=== PATIENT | female | born 1980 | race Hispanic/Latino ===

== ENCOUNTER 2017-06-03 11:52 | Emergency (ER) | payer BC ==
[~2017-06-03] VITALS: Ht 165.1 cm; Wt 62.6 kg
[2017-06-03] MEDS ORDERED: ONDANSETRON HCL INJ 2 MG/ML VIAL IV STA (12:21)
[2017-06-03] MEDS ORDERED: SODIUM CHLORIDE 0.9% 1000ML 1,000 ML IV STA (12:21)
[2017-06-03] MEDS ORDERED: KETOROLAC TROMETHAMINE 30 MG/ML VIAL IV STA (12:21)
[2017-06-03 12:30] LABS: BILIRUBIN,URINE NEGATIVE (NEGATIVE); KETONES,URINE 2+ (NEGATIVE); LEUKOCYTE ESTERASE ,URINE NEGATIVE (NEGATIVE); NITRITE,URINE NEGATIVE (NEGATIVE); URINE UROBILINOGEN 0.2 mg/dL (0.2 - 1)
[2017-06-03 12:31] LABS: PROTEIN,URINE DIPSTICK TRACE (NEGATIVE)
[2017-06-03 12:32] LABS: PREGNANCY TEST, URINE NEGATIVE (NEGATIVE)
[2017-06-03 12:45] LABS: BACTERIA,URINE FEW /HPF; CLARITY,URINE HAZY (CLEAR); COLOR,URINE YELLOW (YELLOW); EPITHELIAL CELLS,URINE FEW /LPF
[2017-06-03] MEDS ORDERED: KETOROLAC TROMETHAMINE 30 MG/ML VIAL ONE (12:51)
[2017-06-03] MEDS ORDERED: ONDANSETRON HCL INJ 2 MG/ML VIAL ONE (12:51)
[2017-06-03 13:12] LABS: BASOPHILS % 0.4 % (0.0-1.0); EOSINOPHILS # (AUTO) 0.1 (0.0-0.4); EOSINOPHILS % 0.9 % (0.0-6.0); HEMATOCRIT 38.2 % (34.2-44.1); HEMOGLOBIN 12.4 g/dL (12.0-16.0); LYMPHOCYTES # (AUTO) 1.6 (1.0-3.2); LYMPHOCYTES % 14.3 % (18.0-39.1); MEAN CORPUSCULAR HEMOGLOBIN 27.7 pg (28-32); MEAN CORPUSCULAR HGB CONC 32.5 g/dL (31-35); MEAN CORPUSCULAR VOLUME 85.3 fL (81-99); MONOCYTES # (AUTO) 0.5 (0.2-0.8); MONOCYTES % 4.7 % (4.4-11.3); NEUTROPHILS # (AUTO) 8.9 (2.1-6.9); NEUTROPHILS % 79.3 % (38.7-80.0); PLATELET COUNT 310 x10e3/uL (140-360); RED BLOOD COUNT 4.48 x10e6/uL (3.6-5.1); RED CELL DISTRIBUTION WIDTH 14.9 % (11.7-14.4)
[2017-06-03 13:34] LABS: ALANINE AMINOTRANSFERASE 22 IU/L (0-55); ALBUMIN 4.4 g/dL (3.5-5.0); ALBUMIN/GLOBULIN RATIO 1.2 (0.8-2.0); ALKALINE PHOSPHATASE 55 IU/L (40-150); BLOOD UREA NITROGEN 13 mg/dL (7-26); BUN/CREATININE RATIO 17 (6-25); CALCIUM 9.3 mg/dL (8.4-10.2); CARBON DIOXIDE 23 mmol/L (22-29); CHLORIDE 118 mmol/L (98-107); CREATININE, SERUM 0.77 mg/dL (0.57-1.11); EST GLOMERULAR FILTRATION RATE > 60 ML/MIN (60-); GLUCOSE 109 mg/dL (74-118); POTASSIUM 3.4 mmol/L (3.5-5.1)
[2017-06-03 15:23] LABS: ANION GAP 0.4 mmol/L (8-16); SODIUM 138 mmol/L (136-145)
--- NOTE | 2017-06-03 18:11 | Diagnostic Imaging Report ---
EXAM: CT Abdomen and Pelvis WITHOUT contrast INDICATION: COMPARISON: None. TECHNIQUE: Abdomen and Pelvis was scanned utilizing a multidetector helical scanner without the use of IV contrast. Coronal and sagittal reformations were obtained. IV CONTRAST: None COMPLICATIONS: None RADIATION DOSE: Total DLP: 242 mGy*cm Estimated effective dose: (DLP x 0.015 x size factor) mSv CTDIvol has been reviewed. It is below the limits set by the Radiation Protocol Committee (RPC). FINDINGS: Abdomen: Lung Bases: No acute findings. Solid Organs: Nonenhanced images of liver, adrenals, kidneys, spleen, and pancreas are unremarkable. No hydronephrosis, renal, or ureteral calculi. Upper GI Tract: Small hiatal hernia. No small bowel obstructive changes. Increased density material within the small bowel. Vascularity: No aortic aneurysm. Lymph Nodes: No suspicious adenopathy within limitations of nonenhanced exam. Other: None. Pelvis: Bladder: Moderately distended. Other: Uterus/adnexa suboptimally evaluated on nonenhanced CT. Colon: No acute colonic findings. Bones: No acute findings. IMPRESSION: 1. Moderate distention urinary bladder. 2. No renal or ureteral calculi. 3. Increased density material within the small bowel statistically ingested material. 4. Case discussed with Dr. Burnham at 2:15 PM. Signed by: Dr. Brett Alexandra MD on 06/03/2017 6:07 PM
== END 2017-06-03 15:25 | disposition home or self-care (01) ==
LOC: ER 11:52
DX: R10.9 Unspecified abdominal pain (principal); R33.9 Retention of urine, unspecified
CPT/HCPCS: 36415; 74176; 80053; 81001; 81025; 85025; 87086; 99284; J1885; J2405; J7030

== ENCOUNTER 2017-08-12 01:19 | Emergency (ER) | payer BC ==
[~2017-08-12] VITALS: Ht 165.1 cm; Wt 64.9 kg
--- OUTSIDE RECORDS SUMMARY | 2017-08-12 01:20 | XMS REPORT ---
Author Author [facility] Address Unknown Phone Unavailable Care Team Providers Care Philatelic Consultant Name Role Phone STEFF NATH Unavailable Unavailable Problems This patient has no known problems. Allergies, Adverse Reactions, Alerts This patient has no known allergies or adverse reactions. Medications This patient has no known medications. Results Test Description Test Time Test Comments Text Results Atomic Results Result Comments CT ABDOMEN/PELVIS WO [place] [address] Patient Name: WILLI CRAFT MR #: [id number] : 1980 Age/Sex: 37/F Req #: [id number] Adm Physician: Ordered by: RACHEL MCMAHAN COPER HAND Report #: [id number] Location: ER Room/Bed: Procedure: [id number] CT/CT ABDOMEN/PELVIS WO Exam Date: 06/03/17 Exam Time: 1345 REPORT STATUS: Signed EXAM: CT Abdomen and Pelvis WITHOUT contrast INDICATION: COMPARISON: None. TECHNIQUE: Abdomen and Pelvis was scanned utilizing a multidetector helical scanner without the use of IV contrast. Coronal and sagittal reformations were obtained. IV CONTRAST: None COMPLICATIONS: None RADIATION DOSE: Total DLP: 242 mGy*cm Estimated effective dose: (DLP x 0.015 x size factor) mSv CTDIvol has been reviewed. It is below the limits set by the Radiation Protocol Committee (RPC). FINDINGS: Abdomen: Lung Bases: No acute findings. Solid Organs: Nonenhanced images of liver, adrenals, kidneys, spleen, and pancreas are unremarkable. No hydronephrosis, renal, or ureteral calculi. Upper GI Tract: Small hiatal hernia. No small bowel obstructive changes. Increased density material within the small bowel. Vascularity: No aortic aneurysm. Lymph Nodes: No suspicious adenopathy within limitations of nonenhanced exam. Other: None. Pelvis: Bladder: Moderately distended. Other: Uterus/adnexa suboptimally evaluated on nonenhanced CT. Colon: No acute colonic findings. Bones: No acute findings. IMPRESSION: 1. Moderate distention urinary bladder. 2. No renal or ureteral calculi. 3. Increased density material within the small bowel statistically ingested material. 4. Case discussed with Dr. Nath at 2:15 PM. Signed by: Dr. Brett Alexandra MD on 06/03/2017 6:07 PM Dictated By: BRETT ALEXANDRA MD 06 Transcribed By: BRANDON on 06/03/171806 COPY TO: RACHEL MCMAHAN NP
[2017-08-12 01:51] LABS: BILIRUBIN,URINE NEGATIVE (NEGATIVE); CLARITY,URINE HAZY (CLEAR); COLOR,URINE YELLOW (YELLOW); KETONES,URINE 1+ (NEGATIVE); LEUKOCYTE ESTERASE ,URINE NEGATIVE (NEGATIVE); NITRITE,URINE NEGATIVE (NEGATIVE); PROTEIN,URINE DIPSTICK NEGATIVE (NEGATIVE); URINE UROBILINOGEN 0.2 mg/dL (0.2 - 1)
[2017-08-12 01:53] LABS: PREGNANCY TEST, URINE NEGATIVE (NEGATIVE)
[2017-08-12] MEDS ORDERED: SODIUM CHLORIDE 0.9% 1000ML 1,000 ML IV STA (01:56)
[2017-08-12] MEDS ORDERED: PANTOPRAZOLE 40 MG 10ML VIAL IV STA (01:56)
[2017-08-12] MEDS ORDERED: ONDANSETRON HCL INJ 2 MG/ML VIAL IV STA (01:56)
[2017-08-12] MEDS ORDERED: MORPHINE SULFATE 2 MG/ML SYR IV STA (01:56)
[2017-08-12] MEDS ORDERED: KETOROLAC TROMETHAMINE 30 MG/ML VIAL IV STA (01:56)
[2017-08-12 02:06] LABS: BACTERIA,URINE MODERATE /HPF; EPITHELIAL CELLS,URINE FEW /LPF; MUCUS,URINE MANY (RARE); RBC,URINE 21-50 /HPF (0-5)
[2017-08-12] MEDS ORDERED: CEFTRIAXONE SOD 1 GM VIAL IV STA (02:18)
[2017-08-12 02:19] LABS: BASOPHILS % 0.4 % (0.0-1.0); EOSINOPHILS # (AUTO) 0.2 (0.0-0.4); EOSINOPHILS % 1.6 % (0.0-6.0); HEMATOCRIT 37.6 % (34.2-44.1); HEMOGLOBIN 12.3 g/dL (12.0-16.0); LYMPHOCYTES # (AUTO) 3.9 (1.0-3.2); MEAN CORPUSCULAR HEMOGLOBIN 27.6 pg (28-32); MEAN CORPUSCULAR HGB CONC 32.7 g/dL (31-35); MEAN CORPUSCULAR VOLUME 84.5 fL (81-99); MONOCYTES # (AUTO) 0.6 (0.2-0.8); MONOCYTES % 5.9 % (4.4-11.3); NEUTROPHILS # (AUTO) 5.1 (2.1-6.9); NEUTROPHILS % 51.7 % (38.7-80.0); PLATELET COUNT 342 x10e3/uL (140-360); RED BLOOD COUNT 4.45 x10e6/uL (3.6-5.1)
--- NOTE | 2017-08-12 02:38 | Diagnostic Imaging Report ---
EXAM: CT ABDOMEN AND PELVIS without IV CONTRAST INDICATION: Right flank pain COMPARISON: CT of the abdomen and pelvis June 03, 2017 TECHNIQUE: The abdomen and pelvis were scanned using a multidetector helical scanner. Coronal and sagittal reformations were obtained. Renal stone protocol performed. IV Contrast: None Oral Contrast: None CTDIvol has been reviewed. It is below the limits set by the Radiation Protocol Committee (RPC). FINDINGS: LOWER THORAX: No consolidations LIVER: No masses BILIARY: Normal gallbladder. No ductal dilation. SPLEEN: No masses PANCREAS: No masses ADRENALS: No nodules RIGHT KIDNEY: No nephroureterolithiasis or hydronephrosis. LEFT KIDNEY: No nephroureterolithiasis or hydronephrosis. GI TRACT: No wall thickening or obstruction. Normal appendix. VESSELS: Normal PERITONEUM/RETROPERITONEUM: Trace free pelvic fluid consistent with physiologic fluid. LYMPH NODES: No lymphadenopathy REPRODUCTIVE ORGANS: Normal BLADDER: Moderately distended SOFT TISSUES: Normal BONES: No suspicious bone lesions. IMPRESSION: No nephroureterolithiasis. Moderately distended bladder. Signed by: Dr. Nilda Santos M.D. on 08/12/2017 2:34 AM
[2017-08-12 02:40] LABS: ALANINE AMINOTRANSFERASE 13 IU/L (0-55); ALBUMIN 4.4 g/dL (3.5-5.0); ALBUMIN/GLOBULIN RATIO 1.3 (0.8-2.0); ALKALINE PHOSPHATASE 53 IU/L (40-150); ANION GAP 17.2 mmol/L (8-16); BLOOD UREA NITROGEN 9 mg/dL (7-26); CALCIUM 9.5 mg/dL (8.4-10.2); CARBON DIOXIDE 21 mmol/L (22-29); CHLORIDE 100 mmol/L (98-107); GLUCOSE 107 mg/dL (74-118); MAGNESIUM 1.9 MG/DL (1.3-2.1); POTASSIUM 3.2 mmol/L (3.5-5.1); SODIUM 135 mmol/L (136-145)
[2017-08-12 02:57] LABS: BUN/CREATININE RATIO 12 (6-25); CREATININE, SERUM 0.77 mg/dL (0.57-1.11); EST GLOMERULAR FILTRATION RATE > 60 ML/MIN (60-)
== END 2017-08-12 03:15 | disposition home or self-care (01) ==
LOC: ER 01:19
DX: R10.31 Right lower quadrant pain (principal); N10 Acute pyelonephritis; N39.0 Urinary tract infection, site not specified
CPT/HCPCS: 36415; 74176; 80053; 81001; 81025; 83735; 85025; 87086; 99284; J0696; J1885; J2270; J2405; J7030

== ENCOUNTER 2017-09-11 19:20 | Emergency (ER) | payer BC ==
[~2017-09-11] VITALS: Ht 165.1 cm; Wt 64.9 kg
--- OUTSIDE RECORDS SUMMARY | 2017-09-11 19:23 | XMS REPORT | Continuity of Care Document ---
Author Author [facility] Organization [facility] Address [address] [place] [address] Phone Unavailable Care Team Providers Care Fine Grade Operator Name Role Phone NO, PCP PCP Unavailable Insurance Providers Guarantor Willi Grimaldo Address [address] [place] [address] Email [email or web address] [facility] Policy Number [id number] Subscriber's Name Willi Grimaldo Relationship 18 Self / Same As Patient Group Number [id number] Group [place] [facility] [place] [employer] [place] Effective Date 17 Advance Directives Directive Response Recorded Date/Time Does the patient have an advance directive? No 06/03/17 1:30pm If yes, is advance directive on file with [facility]? No 06/03/17 1:30pm If not on file with [facility] will patient provide a copy? No 06/03/17 1:30pm Do you have a Directive to Physician? No 08/12/17 1:17am Do you have a Medical Power of Database Software Technician? No 08/12/17 1:17am Do you have an out of hospital Do Not Resuscitate Order? No 08/12/17 1:17am Do you have any special needs we should be aware of? No 08/12/17 1:17am Do you have a support person here with you today? Yes 08/12/17 1:17am Did patient receive Notice of Privacy Practices? Yes 08/12/17 1:17am Did patient receive patient rights and responsibilities? Yes 08/12/17 1:17am Problems No problem information available. Medications No medication information available. Social History Smoking Status Start Date Stop Date Never Smoker Hospital Discharge Instructions No hospital discharge instruction information available. Plan of Care Discharge Date 08/12/17 3:15am Disposition HOME, SELF-CARE Condition at Discharge Stable Instructions/Education Provided Pyelonephritis Urinary Tract Infection - Women Forms Provided Work/School Excuse Prescriptions See Medication Section Additional Instructions/Education FOLLOW UP WITH YOUR DOCTOR AND UROLOGIST TOMORROW DRINK PLENTY OF FLUIDS TAKE MEDS DIRECTED TAKE IBUPROFEN ACCORDING TO LABEL INSTRUCTIONS Functional Status No functional status information available. Allergies, Adverse Reactions, Alerts No known allergies. Immunizations No immunization information available. Vital Signs Acute Vital Signs Vital Response Date/Time Height 5 ft 5 in 08/12/2017 1:28am Weight 143 lb 08/12/2017 1:28am Body Mass Index 23.8 kg/m^2 08/12/2017 1:28am Results Laboratory Results Test Name Result Units Flags Reference Collection Date/Time Result Date/ Time Comments White Blood Count 9.83 x10e3/uL 4.8-10.8 08/12/2017 2:15am 08/12/2017 2 :25am Red Blood Count 4.45 x10e6/uL 3.6-5.1 08/12/2017 2:15am 08/12/2017 2: 25am Hemoglobin 12.3 g/dL 12.0-16.0 08/12/2017 2:15am 08/12/2017 2:25am Hematocrit 37.6 % 34.2-44.1 08/12/2017 2:15am 08/12/2017 2:25am Mean Corpuscular Volume 84.5 fL 81-99 08/12/2017 2:15am 08/12/2017 2: 25am Mean Corpuscular Hemoglobin 27.6 pg L 28-32 08/12/2017 2:15am 2017 2:25am Mean Corpuscular Hemoglobin Concent 32.7 g/dL 31-35 08/12/2017 2:15am 08/12/2017 2:25am Red Cell Distribution Width 14.0 % 11.7-14.4 08/12/2017 2:15am 2017 2:25am Platelet Count 342 x10e3/uL 140-360 08/12/2017 2:15am 08/12/2017 2: 25am Neutrophils (%) (Auto) 51.7 % 38.7-80.0 08/12/2017 2:15am 08/12/2017 2: 25am Lymphocytes (%) (Auto) 40.0 % H 18.0-39.1 08/12/2017 2:1508/12/2017 2 :25am Monocytes (%) (Auto) 5.9 % 4.4-11.3 08/12/2017 2:1508/12/2017 2: 25am Eosinophils (%) (Auto) 1.6 % 0.0-6.0 08/12/2017 2:15am 08/12/2017 2: 25am Basophils (%) (Auto) 0.4 % 0.0-1.0 08/12/2017 2:1508/12/2017 2:25am IM GRANULOCYTES % 0.4 % 0.0-1.0 08/12/2017 2:1508/12/2017 2:25am Neutrophils # (Auto) 5.1 2.1-6.9 08/12/2017 2:15am 08/12/2017 2:25am Lymphocytes # (Auto) 3.9 H 1.0-3.2 08/12/2017 2:15am 08/12/2017 2: 25am Monocytes # (Auto) 0.6 0.2-0.8 08/12/2017 2:15am 08/12/2017 2:25am Eosinophils # (Auto) 0.2 0.0-0.4 08/12/2017 2:15am 08/12/2017 2:25am Basophils # (Auto) 0.0 0.0-0.1 08/12/2017 2:1508/12/2017 2:25am Absolute Immature Granulocyte (auto 0.04 x10e3/uL 0-0.1 08/12/2017 2: 1508/12/2017 2:25am Urine Color YELLOW YELLOW 08/12/2017 1:48am 08/12/2017 1:52am Urine Clarity HAZY CLEAR 08/12/2017 1:48am 08/12/2017 1:52am Urine Specific [place] 1.015 1.010-1.025 08/12/2017 1:48am 2017 1:52am Urine pH 7 5 - 7 08/12/2017 1:48am 08/12/2017 1:52am Urine Leukocyte Esterase NEGATIVE NEGATIVE 08/12/2017 1:48am 2017 1:52am Urine Nitrite NEGATIVE NEGATIVE 08/12/2017 1:48am 08/12/2017 1:52am Urine Protein NEGATIVE NEGATIVE 08/12/2017 1:48am 08/12/2017 1:52am Urine Glucose (UA) NEGATIVE NEGATIVE 08/12/2017 1:48am 08/12/2017 1: 52am Urine Ketones 1+ H NEGATIVE 08/12/2017 1:48am 08/12/2017 1:52am Urine Urobilinogen 0.2 mg/dL 0.2 - 1 08/12/2017 1:48am 08/12/2017 1: 52am Urine Bilirubin NEGATIVE NEGATIVE 08/12/2017 1:48am 08/12/2017 1: 52am Urine Blood 3+ H NEGATIVE 08/12/2017 1:48am 08/12/2017 1:52am Urine WBC 6-10 /HPF H 0-5 08/12/2017 1:48am 08/12/2017 2:07am Urine RBC 21-50 /HPF H 0-5 08/12/2017 1:48am 08/12/2017 2:07am Urine Bacteria MODERATE /HPF H NONE 08/12/2017 1:48am 08/12/2017 2:07am Urine Epithelial Cells FEW /LPF NONE 08/12/2017 1:48am 08/12/2017 2: 07am Urine Mucus MANY H RARE 08/12/2017 1:48am 08/12/2017 2:07am Urine Test NEGATIVE NEGATIVE 08/12/2017 1:48am 08/12/2017 1 :53am Sodium Level 135 mmol/L L 136-145 08/12/2017 2:15am 08/12/2017 2:43am Potassium Level 3.2 mmol/L L 3.5-5.1 08/12/2017 2:15am 08/12/2017 2: 43am Chloride Level 100 mmol/L 98-107 08/12/2017 2:15am 08/12/2017 2:43am Carbon Dioxide Level 21 mmol/L L 22-29 08/12/2017 2:15am 08/12/2017 2: 43am Anion Gap 17.2 mmol/L H 8-16 08/12/2017 2:1508/12/2017 2:43am Blood Urea Nitrogen 9 mg/dL 7-26 08/12/2017 2:1508/12/2017 2:43am Creatinine 0.77 mg/dL 0.57-1.11 08/12/2017 2:1508/12/2017 3:02am BUN/Creatinine Ratio 12 6-25 08/12/2017 2:1508/12/2017 3:02am Estimat Glomerular Filtration Rate > 60 ML/MIN 60- 08/12/2017 2:15 3:02am Ranges were taken from the National Kidney Disease Education Program and the National Kidney Foundation literature. Reference ranges: 60 or greater: Normal 16-59 (for 3 consecutive months): Chronic kidney disease 15 or less: Kidney failure Glucose Level 107 mg/dL 74-118 08/12/2017 2:1508/12/2017 2:43am Calcium Level 9.5 mg/dL 8.4-10.2 08/12/2017 2:1508/12/2017 2:43am Magnesium Level 1.9 MG/DL 1.3-2.1 08/12/2017 2:1508/12/2017 2:43am Total Bilirubin 0.4 mg/dL 0.2-1.2 08/12/2017 2:1508/12/2017 2:43am Aspartate Amino Transf (AST/SGOT) 15 IU/L 5-34 08/12/2017 2:152017 2:43am Alanine Aminotransferase (ALT/SGPT) 13 IU/L 0-55 08/12/2017 2:1509/2017 2:43am Total Protein 7.8 g/dL 6.5-8.1 08/12/2017 2:1508/12/2017 2:43am Albumin 4.4 g/dL 3.5-5.0 08/12/2017 2:1508/12/2017 2:43am Globulin 3.4 g/dL 2.3-3.5 08/12/2017 2:1508/12/2017 2:43am Albumin/Globulin Ratio 1.3 0.8-2.0 08/12/2017 2:1508/12/2017 2: 43am Alkaline Phosphatase 53 IU/L 40-150 08/12/2017 2:15am 08/12/2017 2: 43am Procedures Procedure Status Date Provider(s) CT of abdomen and pelvis without contrast Active 06/03/[address] of abdomen and pelvis without contrast Active 08/12/17 CHARU SANDOVAL MD Encounters Encounter Location Arrival/Admit Date Discharge/Depart Date Attending Provider Departed Emergency Room [facility] 08/12/17 1:19am 3:15am CHARU SANDOVAL MD Departed Emergency Room [facility] 06/03/17 11:52am 06/03 3:25pm STEFF NATH MD
[2017-09-11 21:10] LABS: BASOPHILS % 0.3 % (0.0-1.0); EOSINOPHILS # (AUTO) 0.1 (0.0-0.4); EOSINOPHILS % 0.5 % (0.0-6.0); HEMATOCRIT 39.6 % (34.2-44.1); HEMOGLOBIN 12.9 g/dL (12.0-16.0); LYMPHOCYTES # (AUTO) 1.8 (1.0-3.2); LYMPHOCYTES % 14.9 % (18.0-39.1); MEAN CORPUSCULAR HEMOGLOBIN 27.9 pg (28-32); MEAN CORPUSCULAR HGB CONC 32.6 g/dL (31-35); MEAN CORPUSCULAR VOLUME 85.7 fL (81-99); MONOCYTES # (AUTO) 0.4 (0.2-0.8); MONOCYTES % 3.5 % (4.4-11.3); NEUTROPHILS # (AUTO) 9.5 (2.1-6.9); NEUTROPHILS % 80.4 % (38.7-80.0); PLATELET COUNT 319 x10e3/uL (140-360); RED BLOOD COUNT 4.62 x10e6/uL (3.6-5.1); RED CELL DISTRIBUTION WIDTH 14.2 % (11.7-14.4)
[2017-09-11] MEDS ORDERED: KETOROLAC TROMETHAMINE 30 MG/ML VIAL IV STA (21:10)
[2017-09-11] MEDS ORDERED: ONDANSETRON HCL INJ 2 MG/ML VIAL IV STA (21:16)
[2017-09-11 21:20] LABS: CLARITY,URINE SL CLOUDY (CLEAR); COLOR,URINE YELLOW (YELLOW); LEUKOCYTE ESTERASE ,URINE NEGATIVE (NEGATIVE); NITRITE,URINE NEGATIVE (NEGATIVE); PROTEIN,URINE DIPSTICK TRACE (NEGATIVE)
[2017-09-11 21:21] LABS: BILIRUBIN,URINE NEGATIVE (NEGATIVE); KETONES,URINE 2+ (NEGATIVE); URINE UROBILINOGEN 0.2 mg/dL (0.2 - 1)
[2017-09-11] MEDS ORDERED: ONDANSETRON HCL INJ 2 MG/ML VIAL ONE (21:21)
[2017-09-11 21:24] LABS: ALANINE AMINOTRANSFERASE 18 IU/L (0-55); ALBUMIN 4.9 g/dL (3.5-5.0); ALBUMIN/GLOBULIN RATIO 1.3 (0.8-2.0); ALKALINE PHOSPHATASE 60 IU/L (40-150); AMYLASE 57 U/L (25-125); BLOOD UREA NITROGEN 10 mg/dL (7-26); BUN/CREATININE RATIO 12 (6-25); CALCIUM 10.5 mg/dL (8.4-10.2); CARBON DIOXIDE 25 mmol/L (22-29); CHLORIDE 100 mmol/L (98-107); CREATININE, SERUM 0.82 mg/dL (0.57-1.11); EST GLOMERULAR FILTRATION RATE > 60 ML/MIN (60-); GLUCOSE 109 mg/dL (74-118); LIPASE 16 U/L (8-78); SODIUM 137 mmol/L (136-145)
[2017-09-11] MEDS ORDERED: SODIUM CHLORIDE 0.9% 1000ML 1,000 ML IV SCH (21:30)
[2017-09-11 21:31] LABS: BACTERIA,URINE RARE /HPF; EPITHELIAL CELLS,URINE FEW /LPF; RBC,URINE 0-5 /HPF (0-5)
--- NOTE | 2017-09-11 22:19 | Diagnostic Imaging Report ---
EXAM: CT Abdomen and Pelvis WITHOUT contrast INDICATION: Right flank pain, history of renal stone. COMPARISON: 06/03/2017 and 08/12/2017 TECHNIQUE: Abdomen and pelvis were scanned utilizing a multidetector helical scanner from the lung base to the pubic symphysis without administration of IV contrast. Absence of intravenous contrast decreases sensitivity for detection of focal lesions and vascular pathology. Coronal and sagittal reformations were obtained. Stone protocol is performed. IV CONTRAST: None. ORAL CONTRAST: None RADIATION DOSE: Total DLP: 227.96 mGy*cm Estimated effective dose: (DLP x 0.015 x size factor) mSv COMPLICATIONS: None FINDINGS: LINES and TUBES: None. LOWER THORAX: Unremarkable HEPATOBILIARY: No focal hepatic lesions. No biliary ductal dilation. GALLBLADDER: No radio-opaque stones or sludge. No wall thickening. SPLEEN: No splenomegaly. PANCREAS: No focal masses or ductal dilatation. ADRENALS: No adrenal nodules KIDNEYS/URETERS: No hydronephrosis. No cystic or solid mass lesions. Punctate calcific density best visualized in the inferior renal collecting system of the right kidney on coronal series 401, image 55, measuring approximately 2 mm GI TRACT: No abnormal distention, wall thickening, or evidence of bowel obstruction. Appendix is normal. PELVIC ORGANS/BLADDER: Unremarkable. LYMPH NODES: No lymphadenopathy. VESSELS: Unremarkable. PERITONEUM / RETROPERITONEUM: No free air or fluid. BONES: Unremarkable. SOFT TISSUES: Unremarkable. IMPRESSION: 1. Punctate calcific density barely noted in the inferior renal collecting system of the right kidney compatible with a 2 mm stone Signed by: Dr. Craig Aceves M.D. on 09/11/2017 10:15 PM
== END 2017-09-11 22:30 | disposition home or self-care (01) ==
LOC: ER 19:25
DX: R10.9 Unspecified abdominal pain (principal); M54.9 Dorsalgia, unspecified; N20.2 Calculus of kidney with calculus of ureter
CPT/HCPCS: 36415; 74176; 80053; 81001; 82150; 83690; 84702; 85025; 99284; J1885; J2405; J7030

== ENCOUNTER 2017-11-30 02:44 | Observation (INO) | payer BC ==
[~2017-11-30] VITALS: Ht 165.1 cm; Wt 66.7 kg
[2017-11-30] MEDS ORDERED: KETOROLAC TROMETHAMINE 30 MG/ML VIAL IM STA (02:50)
[2017-11-30] MEDS ORDERED: SODIUM CHLORIDE 0.9% 1000ML 1,000 ML IV STA (02:50)
[2017-11-30] MEDS ORDERED: ONDANSETRON HCL INJ 2 MG/ML VIAL IV STA ×2 (02:50→03:47)
[2017-11-30] MEDS ORDERED: KETOROLAC TROMETHAMINE 30 MG/ML VIAL ONE ×2 (02:52→14:45)
[2017-11-30 03:19] LABS: BASOPHILS % 0.3 % (0.0-1.0); EOSINOPHILS # (AUTO) 0.2 (0.0-0.4); EOSINOPHILS % 1.8 % (0.0-6.0); HEMATOCRIT 36.7 % (34.2-44.1); HEMOGLOBIN 12.1 g/dL (12.0-16.0); LYMPHOCYTES # (AUTO) 3.8 (1.0-3.2); LYMPHOCYTES % 30.1 % (18.0-39.1); MEAN CORPUSCULAR HEMOGLOBIN 27.6 pg (28-32); MEAN CORPUSCULAR VOLUME 83.6 fL (81-99); MONOCYTES # (AUTO) 1.1 (0.2-0.8); MONOCYTES % 8.7 % (4.4-11.3); NEUTROPHILS # (AUTO) 7.4 (2.1-6.9); NEUTROPHILS % 58.9 % (38.7-80.0); PLATELET COUNT 325 x10e3/uL (140-360); RED BLOOD COUNT 4.39 x10e6/uL (3.6-5.1); RED CELL DISTRIBUTION WIDTH 14.5 % (11.7-14.4)
[2017-11-30 03:36] LABS: ALANINE AMINOTRANSFERASE 14 IU/L (0-55); ALBUMIN 4.5 g/dL (3.5-5.0); ALBUMIN/GLOBULIN RATIO 1.4 (0.8-2.0); ALKALINE PHOSPHATASE 53 IU/L (40-150); ANION GAP 15.3 mmol/L (8-16); BLOOD UREA NITROGEN 11 mg/dL (7-26); BUN/CREATININE RATIO 14 (6-25); CALCIUM 9.8 mg/dL (8.4-10.2); CARBON DIOXIDE 20 mmol/L (22-29); CHLORIDE 104 mmol/L (98-107); CREATINE KINASE 89 IU/L (29-168); EST GLOMERULAR FILTRATION RATE > 60 ML/MIN (60-); GLUCOSE 116 mg/dL (74-118); POTASSIUM 3.3 mmol/L (3.5-5.1); SODIUM 136 mmol/L (136-145)
[2017-11-30] MEDS ORDERED: MORPHINE SULFATE 2 MG/ML SYR ONE (03:53)
[2017-11-30] MEDS ORDERED: MORPHINE SULFATE INJ 4 MG/ML INJ IV PRN (04:00)
[2017-11-30 04:24] LABS: CLARITY,URINE CLEAR (CLEAR); COLOR,URINE YELLOW (YELLOW); LEUKOCYTE ESTERASE ,URINE NEGATIVE (NEGATIVE); NITRITE,URINE NEGATIVE (NEGATIVE); PROTEIN,URINE DIPSTICK NEGATIVE (NEGATIVE)
[2017-11-30 04:25] LABS: BILIRUBIN,URINE NEGATIVE (NEGATIVE); KETONES,URINE TRACE (NEGATIVE); PREGNANCY TEST, URINE NEGATIVE (NEGATIVE); URINE UROBILINOGEN 0.2 mg/dL (0.2 - 1)
[2017-11-30 04:33] LABS: BACTERIA,URINE MODERATE /HPF
[2017-11-30 04:34] LABS: EPITHELIAL CELLS,URINE FEW /LPF; RENAL EPITHELIAL CELLS,URINE FEW; WBC,URINE (MAN) 0-5 /HPF (0-5)
--- NOTE | 2017-11-30 06:02 | Diagnostic Imaging Report ---
ADDENDUM #1 Note that given right pelvic pain and presumed ovarian/adnexal origin, this cystic mass could be causing intermittent torsion/detorsion due to large size. Recommend business taxes specialist consult. Discussed with Physician: ANNABELLA CANO MD. Signed by: Dr Renetta Cuevas MD on 11/30/2017 6:58 AM ORIGINAL REPORT EXAM: CT ABDOMEN/PELVIS WO DATE: 11/30/2017 3:30 AM INDICATION: Abdominal pain, right flank COMPARISON: 09/11/2017 TECHNIQUE: The abdomen and pelvis were scanned using a multidetector helical scanner. Coronal and sagittal reformations were obtained. Routine protocol performed. IV Contrast: None ml Isovue 300/370 FINDINGS: Lack of IV contrast decreases sensitivity in evaluating abdominal and pelvic organs. LOWER THORAX: 3 mm right basilar dependent groundglass on image 51 could reflect atelectasis or tiny subpleural nodule. LIVER/BILIARY: No masses. No ductal dilatation. GALLBLADDER: Unremarkable SPLEEN: Unremarkable PANCREAS: Unremarkable ADRENALS: No nodules KIDNEYS: No hydronephrosis or stones. GI TRACT: Small hiatal hernia. No wall thickening or evidence of obstruction. Normal appendix. VESSELS: Unremarkable PERITONEUM/RETROPERITONEUM: Mild pelvic free fluid. REPRODUCTIVE ORGANS/BLADDER: There is a large pelvic simple appearing cystic structure measuring 15.2 x 8.2 x 14.3 cm difficult to localize on noncontrast evaluation. BONES: No suspicious bone lesions. IMPRESSION: 1. Large pelvic cystic structure (15.2 cm), which may be adnexal/ovarian in etiology and suspicious for cystic ovarian neoplasm. Recommend follow-up pelvic ultrasound or MRI with and without IV contrast to better localize/characterize. 2. No nephroureterolithiasis. Signed by: Dr Renetta Cuevas MD on 11/30/2017 5:58 AM
[2017-11-30] MEDS ORDERED: HYDROMORPHONE 1MG/1ML INJ ONE (06:27)
[2017-11-30] MEDS ORDERED: HYDROMORPHONE 1MG/1ML INJ IV STA (06:28)
[2017-11-30] MEDS ORDERED: HYDROMORPHONE 20MG/ NS 100ML IV PRN (06:30)
--- NOTE | 2017-11-30 10:09 | Diagnostic Imaging Report ---
PROCEDURE:PELVIC DOPPLER US COMPARISON:CT of the abdomen and pelvis dated 11/30/2017 at 4:47 AM INDICATIONS:Pain TECHNIQUE: Grayscale transverse and sagittal transabdominal and transvaginal images were obtained of the pelvis. Doppler evaluation of the ovaries was also accomplished. Transvaginal imaging was medically necessary to evaluate the adnexa. FINDINGS: UTERUS: Measures 8.6 x 3.9 x 7.0 cm. ENDOMETRIUM: Appears normal measuring 1.0 cm. RIGHT OVARY: Measures 5.9 x 3.2 x 4.7 cm. There is a predominantly cystic structure measuring 12.5 x 9.4 x 15.4 centimeters in the right adnexa likely a paraovarian cyst. LEFT OVARY: Measures 3.9 x 2.3 x 3.3 cm. There is mild amount of free fluid within the pelvis. No adnexal masses. OVARIAN DOPPLER: There is diminished blood flow to the right ovary especially as compared to the left ovary. Very little venous flow is noted and low velocity arterial flow is seen. This may be related to mass effect or compression of the right ovary by the large paraovarian mass. CONCLUSION: 1. Large right adnexal/paraovarian cystic lesion. 2. Diminished arterial and venous flow to the right ovary. Beltran Mohan D.O. Dictated by: Beltran Mohan D.O. on 11/30/2017 at 10:13 Electronically approved by: Beltran Mohan D.O. on 11/30/2017 at 10:13
--- NOTE | 2017-11-30 10:28 | Diagnostic Imaging Report ---
PROCEDURE:US PELVIS COMPLETE NON OB INDICATIONS:Pain CONCLUSION: Please refer to accession # [id number] performed on the same date and time for full dictated report. Beltran Mohan D.O. Dictated by: Beltran Mohan D.O. on 11/30/2017 at 10:32 Electronically approved by: Beltran Mohan D.O. on 11/30/2017 at 10:32
[2017-11-30] MEDS ORDERED: HYDROMORPHONE 2MG/ML INJ IV PRN (10:30)
--- NOTE | 2017-11-30 10:30 | Diagnostic Imaging Report ---
PROCEDURE:TRANSVAGINAL ULTRASOUND INDICATIONS:Pain Please refer to accession # [id number] for full details of this study. Beltran Mohan D.O. Dictated by: Beltran Mohan D.O. on 11/30/2017 at 10:34 Electronically approved by: Beltran Mohan D.O. on 11/30/2017 at 10:34
[2017-11-30] MEDS: HYDROMORPHONE 1MG/1ML INJ IV PRN ×3 (10:48→21:46)
[2017-11-30] MEDS ORDERED: D5.45%NS/KCL 20MEQ 1,000 ML IV SCH (12:05)
[2017-11-30] MEDS ORDERED: CEFOXITIN 1GM/ DEXTROSE 50ML 50 ML IV SCH (14:00)
[2017-11-30] MEDS ORDERED: LIDOCAINE HCL 2% LOCAL INJ 5 ML SDV VIAL INJ ONE (14:45)
[2017-11-30] MEDS ORDERED: ROCURONIUM BROMIDE 10 MG/ML 5ML VIAL ONE (14:45)
[2017-11-30] MEDS ORDERED: PROPOFOL IV EMULSION 10 MG/ML 20 ML VIAL ONE (14:45)
[2017-11-30] MEDS ORDERED: DEXAMETHASONE SOD PHOS INJ 4 MG/ML VIAL ONE (14:45)
[2017-11-30] MEDS ORDERED: CEFAZOLIN SOD 1 GM VIAL ONE (14:45)
[2017-11-30] MEDS ORDERED: ACETAMINOPHEN 1000 MG/100 ML IV ONE (14:45)
[2017-11-30 14:52] VITALS: BP 128/88
[2017-11-30 15:15] VITALS: BP 131/87
[2017-11-30] MEDS: CEFOXITIN SOD 1 GM VIAL IV SCH ×2 (15:51→21:28)
[2017-11-30] MEDS: ONDANSETRON HCL INJ 2 MG/ML VIAL IV PRN ×2 (15:52→21:46)
[2017-11-30 16:01] VITALS: BP 127/75
[2017-11-30 18:12] LABS: INR 1.1; PROTHROMBIN TIME 13.4 seconds (11.9-14.5)
[2017-11-30 18:13] LABS: PARTIAL THROMBOPLASTIN TIME 25.4 seconds (23.8-35.5)
[2017-11-30] MEDS ORDERED: MORPHINE SULFATE 2 MG/ML SYR IV PRN (18:30)
[2017-11-30] MEDS ORDERED: KETOROLAC TROMETHAMINE 30 MG/ML VIAL IV PRN (18:45)
--- NOTE | 2017-11-30 18:56 | History and Physical ---
PRIMARY CARE PHYSICIAN: None. CHIEF COMPLAINT: Right flank pain. HISTORY OF PRESENT ILLNESS: This is a 37-year-old woman with a history of hyperlipidemia, now developing right flank pain radiating to the front, prompting a visit to the hospital. She had nausea and vomiting but no diarrhea. No fever. Came to the hospital, found to have a right ovarian cyst. She is admitted for further evaluation and management. PAST MEDICAL HISTORY: Hyperlipidemia. PAST SURGICAL HISTORY: Tonsillectomy. ALLERGIES: PER THE ELECTRONIC MEDICAL RECORDS. FAMILY HISTORY/SOCIAL HISTORY: Patient is single. She has no children. Occasional alcohol, no cigarettes. She works at a [employer]. MEDICATIONS: Per the electronic medical records. Medications reviewed. REVIEW OF SYSTEMS: Denies any dizziness, chest pain. Denies any leg. Denies any blurred vision. Denies any dysuria. VITAL SIGNS: Reviewed. PHYSICAL EXAMINATION GENERAL APPEARANCE: A tired-appearing woman resting in bed. HEENT: Anicteric. Pupils responsive to light. No oral lesions. CARDIOVASCULAR: Normal S1/S2. No murmurs. ABDOMEN: Soft, nondistended. She has right flank mildly tender, right mid abdomen mildly tender. EXTREMITIES: No edema or calf tenderness. NEUROLOGICALLY: Alert and oriented x3. Moving all extremities. LABS: Reviewed. ASSESSMENT: This is a 37-year-old woman. 1. Abdominal pain and right flank pain. 2. Right ovarian cyst which is large, 15.2 cm, which should be adnexal/ovarian etiology versus neoplasm. 3. Hypokalemia. 4. Urinary tract infection. PLAN 1. Continue cefoxitin. 2. Dr. Buckner has been consulted. 3. Replace potassium and recheck. 4. Rehydrate patient. 5. Pain control. 6. Monitor closely overnight. 7. Treat her with antibiotics. 8. Utilize SCDs. Job#: [id number] EV
[2017-11-30 20:00] VITALS: BP 108/70
[2017-11-30] MEDS: SODIUM CHLORIDE 0.9% 1000ML 1,000 ML IV SCH (21:46)
[2017-11-30 23:23] VITALS: BP 108/70
[2017-12-01] VITALS (8 sets, daily range): BP systolic 106–125; BP diastolic 65–77
[2017-12-01] MEDS: ONDANSETRON HCL INJ 2 MG/ML VIAL IV PRN (04:20)
[2017-12-01] MEDS: CEFOXITIN SOD 1 GM VIAL IV SCH ×3 (05:34→21:14)
[2017-12-01 06:26] LABS: BASOPHILS % 0.2 % (0.0-1.0); EOSINOPHILS # (AUTO) 0.1 (0.0-0.4); EOSINOPHILS % 0.6 % (0.0-6.0); HEMATOCRIT 31.2 % (34.2-44.1); HEMOGLOBIN 10.4 g/dL (12.0-16.0); LYMPHOCYTES # (AUTO) 1.7 (1.0-3.2); MEAN CORPUSCULAR HEMOGLOBIN 28.1 pg (28-32); MEAN CORPUSCULAR HGB CONC 33.3 g/dL (31-35); MEAN CORPUSCULAR VOLUME 84.3 fL (81-99); MONOCYTES % 7.5 % (4.4-11.3); NEUTROPHILS # (AUTO) 10.4 (2.1-6.9); NEUTROPHILS % 78.3 % (38.7-80.0); PLATELET COUNT 223 x10e3/uL (140-360); RED CELL DISTRIBUTION WIDTH 14.6 % (11.7-14.4)
[2017-12-01 06:48] LABS: ANION GAP 9.5 mmol/L (8-16); BLOOD UREA NITROGEN 6 mg/dL (7-26); BUN/CREATININE RATIO 8 (6-25); CALCIUM 8.8 mg/dL (8.4-10.2); CARBON DIOXIDE 23 mmol/L (22-29); CHLORIDE 104 mmol/L (98-107); CREATININE, SERUM 0.76 mg/dL (0.57-1.11); EST GLOMERULAR FILTRATION RATE > 60 ML/MIN (60-); GLUCOSE 110 mg/dL (74-118); POTASSIUM 3.5 mmol/L (3.5-5.1); SODIUM 133 mmol/L (136-145)
[2017-12-01] MEDS: SODIUM CHLORIDE 0.9% 1000ML 1,000 ML IV SCH (08:50)
[2017-12-01] MEDS ORDERED: BUPIVACAINE HCL 0.5% INJ 30 ML VIAL INJ ONE (13:07)
[2017-12-01] MEDS ORDERED: LACTATED RINGER'S 1,000 ML IV SCH (16:03)
[2017-12-01] MEDS ORDERED: ONDANSETRON HCL INJ 2 MG/ML VIAL IV PRN (16:15)
[2017-12-01] MEDS ORDERED: KETOROLAC TROMETHAMINE 30 MG/ML VIAL IV PRN (16:15)
[2017-12-01] MEDS ORDERED: IBUPROFEN 600 MG TAB PO PRN (16:15)
[2017-12-01] MEDS ORDERED: DIPHENHYDRAMINE HCL 25 MG CAP PO PRN (16:15)
[2017-12-01] MEDS ORDERED: BISACODYL 10 MG SUPP PR PRN (16:15)
[2017-12-01] MEDS ORDERED: ACETAMINOPHEN 325 MG TAB PO PRN (16:15)
[2017-12-01] MEDS ORDERED: DOCUSATE SODIUM 100 MG CAP PO PRN (16:15)
[2017-12-01] MEDS ORDERED: SIMETHICONE 80 MG CHEW PO PRN (16:15)
[2017-12-01] MEDS ORDERED: FENTANYL CITRATE/PF 100MCG/2 ML INJ ONE (18:58)
[2017-12-01] MEDS ORDERED: MIDAZOLAM HCL 2 MG/2 ML VIAL ONE (18:58)
--- NOTE | 2017-12-01 19:26 | Consultation ---
DATE OF CONSULTATION: December 01, 2017 REASON FOR CONSULTATION: The patient is a 37-year-old 0 with last menstrual period November 06, 2017, on no contraception, who presents with a history of right lower quadrant pain which started 2 days ago at 7 p.m. It got worse, no relief with [id number] anti-inflammatories. She came to the emergency room where she was found to have a large right adnexal mass and additionally she had nausea and emesis and she was admitted for evaluation of the adnexal mass and for pain control. Of note, she has had visits for same sort of pain on June 04, 2017, August 15, 2017 and September 12, 2017 and the mass was not seen or identified, but patient did have a 2.9 mm renal stone on September 10, 2013 which she passed. The pain resolved with medication, but now the pain is recurred and has gotten to the point where she is not able to bear it very well. PAST MEDICAL HISTORY: Remarkable for mild increase in cholesterol and for kidney stone. PAST SURGICAL HISTORY: Remarkable for tonsillectomy in 2011, wisdom teeth in 2004 and LASIK in 2010. ALLERGIES: SHE HAS NO KNOWN DRUG ALLERGIES. CURRENT MEDICATIONS: Only [id number] Motrin for pain control at home plus narcotic given at the hospital. SOCIAL HISTORY: She is a nonsmoker. Denies alcohol or IV drug abuse. FAMILY HISTORY: Negative for diabetes, hypertension, or cancer, otherwise noncontributory. REVIEW OF SYSTEMS: Unremarkable. PHYSICAL EXAMINATION VITAL SIGNS: Her height is 65 inches, her weight is approximately 140 pounds, again afebrile with vital signs stable. HEENT: Within normal limits. LUNGS: Clear. CARDIOVASCULAR: There is normal S1 and S2 without S3, S4, or murmurs. ABDOMEN: Shows moderate to severe tenderness in the right lower quadrant with no rebound tenderness noted and mass is palpable up to the umbilicus. EXTREMITIES: No clubbing, cyanosis, or edema. Deep tendon refluxes are 2+ bilaterally. PELVIC: Deferred at this time secondary to the patient's pain. LABORATORY VALUES: White count 5.4, hemoglobin 13.5, hematocrit 38.9, and platelets 247. Sodium 140, potassium 3.8, chloride 107, bicarb 22, glucose 103, creatinine 0.76, and BUN 13. Her AST is 22, ALT 18. ECG is negative. CT scan revealed large mass better characterized by ultrasound. The ultrasound showed uterus 8.6 x 7.0 x 3.9 cm, right ovary 5.9 x 3.2 x 4.7 cm, left ovary 3.2 x 2.3 x 3.3 cm. There was a small amount of cul-de-sac fluid and then there was a right adnexal cyst 15.4 x 12.5 x 9.4 cm, likely paraovarian with decreased flow, but present. IMPRESSION: Right adnexal mass cystic in quality, most likely paraovarian, but also cannot rule out ovarian cyst. PLAN: Treatment of this was discussed with the patient, laparoscopy versus laparotomy with drainage of the cyst and removal of it. The patient given the option she wishes to try a laparoscopic removal with laparotomy if the laparoscopic removal is unsuccessful. The plan is to proceed with surgery approximately noon on December 01, 2017. Thank you very much. Job#: [id number] SOFIA PAYTON
[2017-12-02] VITALS: BP 98/50
[2017-12-02] MEDS ORDERED: MOTRIN200 MG PO (00:28)
--- NOTE | 2017-12-02 03:50 | Operative Report ---
DATE OF PROCEDURE: December 01, 2017 PREOPERATIVE DIAGNOSES 1. Abdominal pain. 2. Large right adnexal cyst, rule out torsion. POSTOPERATIVE DIAGNOSES: Torsion of large right paratubal cyst and associated ovary with necrosis. PROCEDURE: Laparoscopic right salpingo-oophorectomy. ANESTHESIA: General with Dr. Arciniega. INDICATIONS FOR THE OPERATION: The patient is a 37-year-old, 0, with last menstrual period at the end of October 2017, presents with recurrent right lower quadrant pain. Last time she had the pain in September, she was found to have a kidney stone, but now she is found to have a 15-cm most likely paratubal cyst with hint of decreased blood supply, but ultrasound did suggest that there was some blood flow to the uterus and the ovary; however, the pain has become unbearable and the patient therefore requests going to the operating room on an emergent basis for evaluation, suspected torsion and removal of any torsed tissue and removal of a cyst. The patient understands that if the tissue is necrotic and it will have to be removed, but every attempt will be made to save the tube and ovary if they are not necrotic. She was therefore taken to the operating room at this time. FINDINGS AT SURGERY: There was an 15-cm necrotic right paratubal cyst with necrotic ovary and the tube and ovary were twisted 3 times on the blood supply necessitating right salpingo-oophorectomy secondary to necrosis of the tube and the associated ovary. The uterus, left tube, and left ovary were within normal limits. Only approximately 100 mL of blood loss occurred and the necrotic tissue was cut out and removed through 15-mm laparoscopic port. PROCEDURE: The patient was taken to the operating room and placed on the table in the supine position. A Andersen catheter was placed in the bladder for constant drainage after general anesthesia was administered by Dr. Arciniega. The abdomen was then prepared and draped in the usual sterile manner. We proceeded through a small incision made just superior to the umbilicus in the midline. The Veress needle was inserted through the incision into the peritoneal cavity. A pneumoperitoneum was created by insufflation of 3.5 liters of carbon dioxide gas under a filling pressure of 8-10 mmHg. The Veress needle was removed. A trocar was inserted through the incision into the peritoneal cavity. The laparoscope was placed with confirmation that the peritoneal cavity had been entered. A second trocar was placed in the right lower quadrant under direct visualization by laparoscopy. At this point, a needle was placed into the cyst which was seen there. The cyst was black and necrotic, but it was 15-cm in size. It was pushed in and suction was applied and the cyst was decompressed. Once the cyst was decompressed, we inspected and found torsion of the right tube and ovary with associated necrosis. The left tube and ovary were within normal limits with a completely healthy fimbriae of the left tube and the uterus was completely normal. At this point, attempt was made to peel out the cyst wall and this was easily performed. The cyst wall was quite large and it was removed using an endobag. It was brought out and sent to pathology for definitive diagnosis. Then, we inspected the remaining tube and ovary and the tissue was completely necrotic and the decision was made to proceed with right salpingo-oophorectomy secondary to necrosis of the tissue. First, the ovary was untorsed and then a LigaSure was placed over the infundibulopelvic ligament. It was fired twice and then cut and then the mesosalpinx was cut on that side. After firing the LigaSure for hemostasis, after 2 more bites, the large tube and normal size ovary were removed or disconnected from the attachment and being of large size in order to get the tissue out through laparoscopic ports, the tissue was cut using laparoscopic scissors and the LigaSure instrument. After being cut into pieces, it was brought out through the 15-mm port which was placed in the suprapubic area under direct visualization by laparoscopy and the endobag was used in this port to remove the tissue. Two Endo bags were used to remove as much tissue as possible and then the rest of the tube and ovary were cut up and removed under direct visualization. All of it was put together and sent to pathology with the only separate piece of tissue being the tubal cyst wall. At this point, the necrotic tissue was removed. We inspected and found no evidence of bleeding. We irrigated and suctioned. Took pictures of the normal tube, ovary, and uterus, and, being no further bleeding, we irrigated and suctioned and then we proceeded to close. All the air and instruments were removed from the abdomen. The skin incisions were closed with 4-0 Monocryl suture inverted stitches and the two 5-mm ports. The 15 mm port was closed with fascial stitch of 3-0 suture with 2 fascial stitches put in and then the skin was closed again with 4-0 Monocryl suture, thus completing the procedure. There were no complications noted from surgery. Estimated blood loss was 100 mL. The patient tolerated the procedure well, was transferred from the operating room to the recovery room in stable condition. Job#: [id number] MARK PAYTON
--- NOTE | 2017-12-05 20:43 | Discharge Summary ---
PRINCIPAL DIAGNOSES 1. Right adnexal mass, status post resection. 2. Abdominal pain and right flank pain secondary to abdominal mass. 3. Hypokalemia. 4. Urinary tract infection. SECONDARY DIAGNOSIS: Hyperlipidemia. CHIEF COMPLAINT: Right flank pain. HISTORY OF PRESENT ILLNESS: This is a 37-year-old woman with right flank pain. Please refer to the H and P for further details. HOSPITAL COURSE: The patient was found to have a right adnexal mass. Underwent laparoscopic procedure for removal by Dr. Buckner and sent to the pathology lab. The patient also had hypokalemia, which was replaced, and urinary tract infection treated with antibiotics. The patient was stable for discharge home with pain medication. DISCHARGE MEDICATIONS: Per electronic medical record. FOLLOWUP 1. With primary care doctor in [address] Buckner in 1 to 2 weeks. CONDITION ON DISCHARGE: Stable and improving. DISCHARGE LOCATION: Home. RAND LIANG MD Job#: [id number]
== END 2017-12-02 01:22 | disposition home or self-care (01) ==
LOC: ER 02:44 → ERHOLD 12:30 → IMCU 13:40
PROVIDERS: ADMIT Internal Medicine; ATTEND Internal Medicine
DX: N83.53 Torsion of ovary, ovarian pedicle and fallopian tube (principal); E78.5 Hyperlipidemia, unspecified; E87.6 Hypokalemia; N39.0 Urinary tract infection, site not specified
CPT/HCPCS: 36415 ×2; 58661; 74176; 76830; 76856; 80048; 80053; 81001; 81025; 82550; 82553; 84484; 85025 ×2; 85610; 85730; 86850; 86900; 87086; 88305; 93976; 99284; G0378 ×3; J0690; J0694 ×2; J1100; J1170; J1885; J2001; J2250; J2270; J2405 ×2; J7030 ×2; 88304; 88307